=== PATIENT | male | born 2000 | race Caucasian/White ===

== ENCOUNTER 2018-11-18 01:42 | Emergency (ER) | payer BC, OTHER ==
[~2018-11-18] VITALS: Ht 185.4 cm; Wt 104.5 kg
[2018-11-18 03:17] VITALS: BP 157/72
[2018-11-18] MEDS ORDERED: LIDOCAINE W/EPINEPHRINE 1% 20ML VIAL SC ONE (05:30)
[2018-11-18] MEDS ORDERED: KEFL500C17 PO (06:07)
--- NOTE | 2018-11-19 07:11 | REP ---
LEFT ELBOW, TWO VIEWS: Two views left elbow performed. No fracture or dislocation is seen. Joint spaces are unremarkable. There are two adjacent foreign bodies in the soft tissues lateral to the joint, both measuring about 4-5 mm in diameter. Electronically Signed by Chip Lozano MD 11/19/2018 09:10 A
== END 2018-11-18 06:34 | disposition home or self-care (01) ==
LOC: M ED 01:42
DX: S51.022A Laceration with foreign body of left elbow, initial encounter (principal); V48.5XXA Car driver injured in noncollision transport accident in traffic accident, initial encounter; Y92.410 Unspecified street and highway as the place of occurrence of the external cause; F17.210 Nicotine dependence, cigarettes, uncomplicated

== ENCOUNTER 2024-11-20 16:51 | Emergency (ER) | payer OTHER ==
[~2024-11-20] VITALS: Ht 182.9 cm; Wt 92.3 kg
[~2024-11-20 16:51] MED LIST: KEFL500C17 PO
[2024-11-20 19:25] VITALS: BP 128/85; TEMP 98.3; O2SAT 98
[2024-11-20] MEDS: NEOSPORIN TOP OINT 15 GM TOP ONE (19:27)
== END 2024-11-20 19:32 | disposition home or self-care (01) ==
LOC: M ED 16:51
DX: S61.210A Laceration without foreign body of right index finger without damage to nail, initial encounter (principal); Y92.9 Unspecified place or not applicable; Y93.9 Activity, unspecified; Y99.0 Civilian activity done for income or pay; W26.8XXA Contact with other sharp object(s), not elsewhere classified, initial encounter